=== PATIENT | female | born 1965 | race Caucasian/White ===

== ENCOUNTER → 2023-10-25 03:29 | Outpatient (CLI) | payer BC, SELFPAY ==
--- NOTE | 2023-10-25 08:30 | DI.MAMMO_ITS ---
Exam(s) MAMMO SCREENING EXAM: MAMMO SCREENING CLINICAL HISTORY: screening,Z12.39 TECHNIQUE: Bilateral full field digital CC and MLO mammographic images were obtained with 3D tomosyn thesis and utilizing computer aided detection (CAD). COMPARISON: There are no priors for comparison. FINDINGS: Masses/Architectural Distortion: No suspicious nodules are seen. There is a biopsy clip in the upper -outer quadrant of the right breast. Microcalcifications: No suspicious pleomorphic-type are seen. Skin Thickening/Nipple Retraction: None. IMPRESSION: 1. No significant interval change with no specific features of malignancy noted. 2. Unless there is more urgent need, screening mammography is recommended, as per [employer] guidelines. BI-RADS Category 1 - Negative Breast Density - Category B - Scattered areas of fibroglandular density Breast density category C or D implies that the patient has dense breast tissue. Dense breast tissue is very common and is not abnormal but dense breast tissue can make it harder to find cancer on a ma mmogram. Also, dense breast tissue may increase their breast cancer risk. This information about the result of the mammogram report was provided to the patient to raise their awareness. Use this report when you speak with the patient about their risks for breast cancer, which includes their family hist ory. At that time, you may recommend for more screening tests (Ultrasound or MRI) as they might be us eful based on their risk. A negative radiographic report should not delay biopsy if a dominant or clinically suspicious mass is present. Up to ten percent of cancers are not identified on mammography. A negative report may reinforce clinical impression. Adenosis and dense breasts may obscure an underlying neoplasm. False positive reports average 6 to 10%. Patient will receive a letter notifying them of these results.
== END ==
PROVIDERS: PCP Nurse Practitioner Family; Visit Provider Nurse Practitioner Family
DX: Z12.31 Encounter for screening mammogram for malignant neoplasm of breast (principal)
CPT/HCPCS: 77063; 77067

== ENCOUNTER 2023-12-11 18:20 | Outpatient (REF) | payer BC, SELFPAY ==
[2023-12-11 17:01] LABS: ALT 41 U/L (14-59); AST 31 U/L (15-37); Albumin 3.8 g/dL (3.4-5.0); Alkaline Phosphatase 110 U/L (46-116); Anion Gap 4.9 mmol/L (3-11); BUN 11 mg/dL (7-18); CO2 30.1 mmol/L (21.0-32.0); CREATININE 0.8 mg/dL (0.55-1.02); Calculated LDL 152 mg/dL (<100); Chloride 102 mmol/L (98-107); Cholesterol 238 mg/dL (<200); Estimated GFR 85.35 (mL/min/1.73m2); Glucose 157 mg/dL (74-106); HDL Cholesterol 60 mg/dL (40-60); Potassium 4.9 mmol/L (3.5-5.1); Sodium 137 mmol/L (136-145); TSH (W/Ref FT4) 7.78 uIU/mL (0.36-3.74); Total Protein 6.9 g/dL (6.4-8.2); Triglyceride 132 mg/dL (<150)
[2023-12-11 17:32] LABS: FREE T4 1.38 ng/dL (0.76-1.46)
[2023-12-12 09:56] LABS: Hepatitis C Ab w Rflx HCV PCR Negative (Negative)
[2023-12-12 10:24] LABS: HIV-1/2 Ag & Ab Screen Negative (Negative)
[2023-12-12 11:20] LABS: IgA 416 mg/dL (85-499); Interpretation (See Note); Tissue Transglutaminase IgA <4.0 CU (<20.0)
== END 2023-12-11 18:21 | disposition home or self-care (01) ==
LOC: LBN 18:20
PROVIDERS: PCP Nurse Practitioner Family; Visit Provider Nurse Practitioner Family
DX: E03.9 Hypothyroidism, unspecified (principal); E78.5 Hyperlipidemia, unspecified; Z11.4 Encounter for screening for human immunodeficiency virus [HIV]; R19.7 Diarrhea, unspecified; Z11.59 Encounter for screening for other viral diseases
CPT/HCPCS: 80053; 80061; 82784; 83516; 86803; 87389; 84439; 84443

== ENCOUNTER 2024-03-28 15:59 | Outpatient (CLI) | payer BC, SELFPAY ==
--- OUTSIDE RECORDS SUMMARY | 2024-03-28 16:02 | XMS_ITS | Clinical Summary ---
Author Organization [facility] Address [address] [place] [address] Care Team Providers Care [employer] Glazer Name Role Phone Unavailable Primary Care Provider Unavailabl e Social History Tobacco Use Types Packs/Day Years Used Date Smoking Tobacco: Never Assessed Sex and Gender Information Value Date Recorded Sex Assigned at Not on file Gender Identity Not on file Sexual Orientation Not on file Plan of Treatment Health Maintenance Due Date Last Done Comments Hepatitis B Vaccine (1 of 3 - 19+ 3-dose series) 05/02 COVID-19 Vaccine ( season) 2023 Hepatitis C Screen Completed 12/11/2023 Procedures Procedure Name Priority Date/Time Associated Diagnosis Comments HEPATITIS C AB W REFLEX TO HCV RNA BY PCR Routine 12/11/2023 8:45 EDT from Last 3 Months or Most Recently Relevant to Health Maintenance Results * HEPATITIS C AB W REFLEX TO HCV RNA BY PCR (12/11/2023 8:45 EDT) Hep C Antibody Negative Negative 12/12/2023 9:52 EDT [facility] Blood VENOUS BLOOD / Unknown 12/11/2023 8:45 EDT 12/11/2023 21:31 EDT Provider Outr Resulting Lab CHEMISTRY & BLOOD GAS ORDERABLES [facility] [address] [place] [address] from Last 3 Months or Most Recently Relevant to Health Maintenance
--- OUTSIDE RECORDS SUMMARY | 2024-03-28 16:02 | XMS_ITS | Referral Summary ---
Author Organization [facility] Address [address] [place] [id number] Care Team Providers Care Bar Examiner Name Role Phone Unavailable Primary Care Provider Unavailabl e Social History Tobacco Use Types Packs/Day Years Used Date Smoking Tobacco: Never Assessed Sex and Gender Information Value Date Recorded Sex Assigned at Not on file Gender Identity Not on file Sexual Orientation Not on file Plan of Treatment Not on file Procedures Procedure Name Priority Date/Time Associated Diagnosis Comments HEPATITIS C AB W REFLEX TO HCV RNA BY PCR Routine 12/11/2023 8:45 EDT from Last 3 Months or Most Recently Relevant to Health Maintenance Results * HEPATITIS C AB W REFLEX TO HCV RNA BY PCR (12/11/2023 8:45 EDT) Hep C Antibody Negative Negative 12/12/2023 9:52 EDT [facility] Blood VENOUS BLOOD / Unknown 12/11/2023 8:45 EDT 12/11/2023 21:31 EDT Provider Outr Resulting Lab CHEMISTRY & BLOOD GAS ORDERABLES [facility] [address] [place], [place] [id number] from Last 3 Months or Most Recently Relevant to Health Maintenance
--- OUTSIDE RECORDS SUMMARY | 2024-03-28 16:02 | XMS_ITS | Encounter Summary ---
Author Organization [facility] Address [address] [place] [address] Care Team Providers Care Sanitarian Aide Name Role Phone Unavailable Primary Care Provider Unavailabl e Encounter Details Date Type Department Care Team (Late st Contact Info) Description 12/11/2023 Lab Requisition [facility] Pathology & Laboratory Medicine - [facility] [address] [place], [place] [id number] Outr Resulting Lab, Provider Social History Tobacco Use Types Packs/Day Years Used Date Smoking Tobacco: Never Assessed Sex and Gender Information Value Date Recorded Sex Assigned at Not on file Gender Identity Not on file Sexual Orientation Not on file documented as of this encounter Plan of Treatment Not on file documented as of this encounter Procedures Procedure Name Priority Date/Time Associated Diagnosis Comments CELIAC DISEASE PANEL Routine 12/11/2023 8:45 EDT HEPATITIS C AB W REFLEX TO HCV RNA BY PCR Routine 12/11/2023 8:45 EDT documented in this encounter Results * HEPATITIS C AB W REFLEX TO HCV RNA BY PCR (12/11/2023 8:45 EDT) Hep C Antibody Negative Negative 12/12/2023 9:52 EDT [facility] Blood VENOUS BLOOD / Unknown 12/11/2023 8:45 EDT 12/11/2023 21:31 EDT Provider Outr Resulting Lab CHEMISTRY & BLOOD GAS ORDERABLES [facility] [address] [place], [place] [id number] * CELIAC DISEASE PANEL (12/11/2023 8:45 EDT) Tissue Transglutaminase Antibody, IgA <4.0 <20.0 CU 12/12/2023 11:15 EDT [facility] Comment: A negative result may be due to IgA deficiency and does not rule out celiac disease. Negative: <20.0 CU Weak Positive: 20.0-30.0 CU Positive: >30.0 CU Results were obtained with the [employer] Flash h-tTG IgA chemiluminescent immunoassay. Values obtained with different manufacturers' assay methods may not be used interchangeably. IgA 416 85 - 499 mg/dL 12/12/2023 11:15 EDT [facility] Celiac Disease Interpretation Negative Serology. Celiac disease unlikely. Approximately 10% of patients with celiac disease are seronegative. Patients who are already adhering to a gluten-free diet may also be seronegative. If celiac disease is highly clinically suspected, referral to gastroenterology for additional evaluation is recommended. 12/12/2023 11:15 EDT [facility] Blood VENOUS BLOOD / Unknown 12/11/2023 8:45 EDT 12/11/2023 21:28 EDT Provider Outr Resulting Lab IMMUNOLOGY A ND SEROLOGY ORDERABLES [facility] [address] [place] [address] documented in this encounter Visit Diagnoses Not on filedocumented in this encounter
--- OUTSIDE RECORDS SUMMARY | 2024-03-28 16:02 | XMS_ITS | Encounter Summary ---
Author Organization [facility] Address [address] [place] [address] Care Team Providers Care [employer] Internship Name Role Phone Unavailable Primary Care Provider Unavailabl e Encounter Details Date Type Department Care Team (Late st Contact Info) Description 12/11/2023 Lab Requisition [facility] Pathology & Laboratory Medicine - [facility] [address] [place] [address] Outr Resulting Lab, Provider Social History Tobacco [...] Procedure Name Priority Date/Time Associated Diagnosis Comments HIV 1/2 ANTIGEN AND ANTIBODY, 4TH GENERATION Routine 12/11/2023 8:45 EDT documented in this encounter Results * HIV 1/2 ANTIGEN AND ANTIBODY, 4TH GENERATION (12/11/2023 8:45 EDT) HIV 1 and 2 Antibody/p24 Antigen, 4th Generation Negative Negative 12/12/2023 10:19 EDT [facility] Comment:If acute HIV-1 infec tion is suspected in a high risk patient, submit plasma specimen for HIV-1 RNA quantitation test. Blood VENOUS BLOOD / Unknown 12/11/2023 8:45 EDT 12/11/2023 21:28 EDT Narrative [facility] - 12/12/2023 10:19 EDT Fourth Generation assay performed on the Siemens Centaur XPT. Provider Outr Resulting Lab IMMUNOLOGY A ND SEROLOGY ORDERABLES [facility] [address] [place] [id number] documented in this encounter Visit Diagnoses Not on filedocumented in this encounter
[2024-03-28 16:43] LABS: TSH (W/Ref FT4) 38.72 uIU/mL (0.36-3.74)
[2024-03-28 17:00] LABS: FREE T4 0.77 ng/dL (0.76-1.46)
== END 2024-03-28 16:00 | disposition home or self-care (01) ==
LOC: LBO 16:00
PROVIDERS: PCP Nurse Practitioner Family; Visit Provider Surgery
DX: E05.90 Thyrotoxicosis, unspecified without thyrotoxic crisis or storm (principal); E11.9 Type 2 diabetes mellitus without complications; E66.01 Morbid (severe) obesity due to excess calories; Z68.42 Body mass index [BMI] 45.0-49.9, adult; I10 Essential (primary) hypertension; G40.109 Localization-related (focal) (partial) symptomatic epilepsy and epileptic syndromes with simple partial seizures, not intractable, without status epilepticus; G47.33 Obstructive sleep apnea (adult) (pediatric); R19.7 Diarrhea, unspecified; Z12.11 Encounter for screening for malignant neoplasm of colon
CPT/HCPCS: 36415; 84439; 84443

== ENCOUNTER 2024-06-20 01:15 | Outpatient (CLI) | payer BC, SELFPAY ==
[2024-06-20 17:16] LABS: TSH (W/Ref FT4) 1.03 uIU/mL (0.36-3.74)
== END 2024-06-20 01:16 | disposition home or self-care (01) ==
PROVIDERS: PCP Nurse Practitioner Family; Visit Provider Nurse Practitioner Family
DX: E03.9 Hypothyroidism, unspecified (principal)
CPT/HCPCS: 36415; 84443

== ENCOUNTER 2024-11-29 00:18 | Outpatient (CLI) | payer BC, SELFPAY ==
--- NOTE | 2024-11-29 06:30 | DI.MAMMO_ITS ---
Exam(s) MAMMO SCREENING EXAM: MAMMO SCREENING CLINICAL HISTORY: screening, Z12.39 TECHNIQUE: Bilateral full field digital CC and MLO mammographic images were obtained with 3D tomosynthesis and utilizing computer aided detection (CAD). COMPARISON: Comparison is made with prior examinations. FINDINGS: Masses/Architectural Distortion: No suspicious masses or areas of architectural distortion are present. There is a biopsy clip again seen in the upper outer quadrant of the right breast. Microcalcifications: No suspicious pleomorphic-type are seen. Skin Thickening/Nipple Retraction: None. IMPRESSION: 1. No significant interval change with no specific features of malignancy noted. 2. Unless there is more urgent need, screening mammography is recommended, as per [employer] guidelines. BI-RADS Category 1 - Negative Breast Density - Category A - The breast are almost entirely fatty. Breast density Category C or D implies that the patient has dense breast tissue. Dense breast tissue can make it harder to find cancer on a mammogram. Dense breast tissue is also associated with an increased risk of breast cancer. This information about the result of the mammogram report was provided to the patient to raise their awareness. Use this report when you speak with the patient about their risks for breast cancer, which includes their family history. At that time, you may recommend additional screening tests (Ultrasound or MRI) as these tests may add significant information. A negative radiographic report should not delay biopsy if a dominant or clinically suspicious mass is present. Up to ten percent of cancers are not identified on mammography. A negative report may reinforce clinical impression. Adenosis and dense breasts may obscure an underlying neoplasm. False positive reports average 6 to 10%. Patient will receive a letter notifying them of these results.
== END 2024-11-29 00:38 ==
LOC: DI 00:18
PROVIDERS: PCP Nurse Practitioner Family; Visit Provider Nurse Practitioner Family
DX: Z12.31 Encounter for screening mammogram for malignant neoplasm of breast (principal); R92.313 Mammographic fatty tissue density, bilateral breasts
CPT/HCPCS: 77063; 77067

== ENCOUNTER 2024-12-13 19:40 | Outpatient (REF) | payer BC, SELFPAY ==
--- NOTE | 2024-12-13 14:45 | PAPFT_PTH ---
PATIENT: Suzanne Klein LOC: [facility] U#:[id number] AGE/SX: 59/F ROOM: RE12/13/[address]: Jerrell Stone DNP : 1965 BED: DIS: 12/13/2024 SPEC #: [id number] RECD: 12/16/24 13:08 STATUS: GONZALO RETana #: [id number] ANNA: 12/13/24 14:[address]: Jerrell Knox DEPT: PENDING SALE TO [facility] Cytology RECD BY: Yuliya Moreira Tissues: 1 - CX/ENDOCX FOR PAP SMEARS Procedures: PAP THIN PREP/[facility]VM Screening HPV DNA PROBE Comments: [id number] (HPV 16 & 18/45)
[2024-12-13 21:38] LABS: Glucose Negative (Negative)
[2024-12-13 21:49] LABS: Hemoglobin A1C 6.9 % (<5.7)
[2024-12-13 21:57] LABS: ALT 36 U/L (14-59); AST 20 U/L (15-37); Albumin 3.6 g/dL (3.4-5.0); Alkaline Phosphatase 137 U/L (46-116); Anion Gap 6.4 mmol/L (3-11); BUN 11 mg/dL (7-18); Bilirubin, Total 1.0 mg/dL (0.2-1.0); CO2 29.6 mmol/L (21.0-32.0); Calcium 9.3 mg/dL (8.5-10.1); Calculated LDL 145 mg/dL (<100); Chloride 102 mmol/L (98-107); Cholesterol 236 mg/dL (<200); Estimated GFR 99.57 (mL/min/1.73m2); Glucose 173 mg/dL (74-106); HDL Cholesterol 53 mg/dL (>or=50); Potassium 4.8 mmol/L (3.5-5.1); Sodium 138 mmol/L (136-145); TSH (W/Ref FT4) 5.37 uIU/mL (0.36-3.74); Total Protein 6.8 g/dL (6.4-8.2); Triglyceride 194 mg/dL (<150)
== END 2024-12-13 19:41 | disposition home or self-care (01) ==
LOC: LBN 19:40
PROVIDERS: PCP Nurse Practitioner Family; Visit Provider Nurse Practitioner Family
DX: R30.0 Dysuria (principal); E03.9 Hypothyroidism, unspecified; E05.90 Thyrotoxicosis, unspecified without thyrotoxic crisis or storm; Z11.51 Encounter for screening for human papillomavirus (HPV); Z01.419 Encounter for gynecological examination (general) (routine) without abnormal findings; R87.628 Other abnormal cytological findings on specimens from vagina
CPT/HCPCS: 80053; 80061; 88142; 81003; 83036; 84439; 84443; 87624

== ENCOUNTER 2025-01-03 11:58 | Outpatient (REF) | payer BC, SELFPAY ==
--- NOTE | 2025-01-03 11:40 | ENDO_PTH ---
PATIENT: Suzanne Klein LOC: [facility] U#:[id number] AGE/SX: 59/F ROOM: RE01/03/[address]: Nisa Leiva MD : 1965 BED: DIS: 01/03/2025 SPEC #: [id number] RECD: 01/06/25 12:46 STATUS: GONZALO REQ #: [id number] ANNA: 01/03/25 11:[address]: Nisa Leiva DEPT: Surgical Specimen RECD BY: Yuliya Moreira ENTERED: 01/06/25 12:46 SP TYPE: Endo OTHR DR: Jerrell Stone, ROXANN Tissues: 1 - ENDOCERVICAL BX/CURRETTE Procedures: GROSS AND MICRO LEVEL 4 Comments: [id number]
== END 2025-01-03 11:59 | disposition home or self-care (01) ==
LOC: LBN 11:58
PROVIDERS: PCP Nurse Practitioner Family; Visit Provider Obstetrics & Gynecology
DX: D26.0 Other benign neoplasm of cervix uteri (principal)
CPT/HCPCS: 88305

== ENCOUNTER 2025-02-27 17:00 | Outpatient (REF) | payer BC, SELFPAY ==
[2025-02-27 18:55] LABS: Glucose Negative (Negative)
[2025-02-27 19:02] LABS: RBC 20-50 HPF (0-2)
== END 2025-02-27 17:01 | disposition home or self-care (01) ==
LOC: LBN 17:00
PROVIDERS: PCP Nurse Practitioner Family; Visit Provider Nurse Practitioner Family
DX: N39.0 Urinary tract infection, site not specified (principal)
CPT/HCPCS: 81003; 81015; 87086